=== PATIENT | female | born 1985 | race Caucasian/White ===

== ENCOUNTER 2016-12-31 15:27 | Emergency (ER) | payer BC ==
[~2016-12-31] VITALS: Ht 157.5 cm; Wt 75.0 kg
[~2016-12-31 15:27] MED LIST: ATARAX 10MG10 MG/TAB PO; ATARAX 25MG25 MG/TAB PO; BACTRIM DS 8001 TAB PO; BENADRYL25 M2 PO; CALCIUM CITRAT200 MG PO; FERROUS SU325 MG/TAB PO; FIORICET 325 MG1 TA1 PO; GLUCOPHAGE500 MG/TAB; METRONIDAZOLE500 MG PO; MIRENA52 MG IU; MOTRIN 600600 MG/TAB PO; NICODERM C14 MG/PATC TD; NO HOME MEDICATIONS; NORCO 325 MG-51 TAB PO; OXECTA5 MG PO; PEPCID 20MG TAB20 MG PO; PERCOCET 325 MG1 TA2 PO; PRENATAL; PRENATAL VITAMI1 TA5 PO; PROCARDIA XL 6060 MG PO; PROMETHAZINE12.5 M5 PO; ROXICODONE 55 MG/TAB PO; TESSALON P100 MG/CAP PO; TRANDATE 200MG200 MG PO; TRAZODONE50 MG PO; ZOFRAN 4MG T4 MG/TAB PO; [UNRECOGNIZED DRUG - REMARK]
[2016-12-31] MEDS ORDERED: NORCO 325 MG-51 TAB PO (16:43)
[2016-12-31 17:36] VITALS: BP 146/97; PULSE 100; TEMP 98.1
== END 2016-12-31 17:37 | disposition home or self-care (01) ==
LOC: COL.ER 15:27
DX: S62.306A Unspecified fracture of fifth metacarpal bone, right hand, initial encounter for closed fracture (principal); I10 Essential (primary) hypertension; F32.9 Major depressive disorder, single episode, unspecified; F12.90 Cannabis use, unspecified, uncomplicated; F17.210 Nicotine dependence, cigarettes, uncomplicated; Z90.49 Acquired absence of other specified parts of digestive tract; Z98.51 Tubal ligation status; Z98.890 Other specified postprocedural states; W18.39XA Other fall on same level, initial encounter; Y93.01 Activity, walking, marching and hiking

== ENCOUNTER 2017-03-01 12:07 | Emergency (ER) | payer BC ==
[~2017-03-01] VITALS: Ht 157.5 cm; Wt 77.3 kg
[2017-03-01 12:09] VITALS: BP 135/72; PULSE 100; TEMP 99.1
[2017-03-01] MEDS ORDERED: CATAPRES 0.1MG0.1 MG PO (12:12)
== END 2017-03-01 12:55 | disposition home or self-care (01) ==
LOC: COL.ER 12:07
DX: S90.31XA Contusion of right foot, initial encounter (principal); Z87.891 Personal history of nicotine dependence; W20.8XXA Other cause of strike by thrown, projected or falling object, initial encounter; Y92.009 Unspecified place in unspecified non-institutional (private) residence as the place of occurrence of the external cause

== ENCOUNTER 2017-04-23 11:47 | Emergency (ER) | payer BC ==
[~2017-04-23] VITALS: Ht 160 cm; Wt 88.2 kg
[~2017-04-23 11:47] MED LIST changes: +CATAPRES 0.1MG0.1 MG PO
[2017-04-23 11:53] VITALS: BP 139/73; TEMP 97.8
[2017-04-23] MEDS ORDERED: ZITHROMAX Z PA250 MG PO (12:55)
[2017-04-23 13:00] VITALS: PULSE 95
== END 2017-04-23 13:04 | disposition home or self-care (01) ==
LOC: COL.ER 11:47
DX: J40 Bronchitis, not specified as acute or chronic (principal); R07.89 Other chest pain; F17.210 Nicotine dependence, cigarettes, uncomplicated

== ENCOUNTER → 2017-09-02 | Outpatient (CLI) | payer BC ==
[~2017-09-02] MED LIST changes: +ZITHROMAX Z PA250 MG PO
== END ==
LOC: COL.RAD 09:45
DX: K76.89 Other specified diseases of liver (principal); R74.8 Abnormal levels of other serum enzymes; R10.11 Right upper quadrant pain; Z87.19 Personal history of other diseases of the digestive system; Z90.49 Acquired absence of other specified parts of digestive tract

== ENCOUNTER 2018-02-11 09:31 | Outpatient (RCR) | payer OTHER | END 2018-05-12 | disposition home or self-care (01) | LOC: WSOH | DX: S23.3XXA Sprain of ligaments of thoracic spine, initial encounter (principal); X50.0XXA Overexertion from strenuous movement or load, initial encounter; Y92.214 College as the place of occurrence of the external cause; Y99.0 Civilian activity done for income or pay; F17.210 Nicotine dependence, cigarettes, uncomplicated ==

== ENCOUNTER 2018-06-14 17:19 | Emergency (ER) | payer SELFPAY ==
[~2018-06-14] VITALS: Ht 160 cm; Wt 69.1 kg
[2018-06-14 20:19] VITALS: BP 138/97; PULSE 99; TEMP 98.5
== END 2018-06-14 20:21 | disposition home or self-care (01) ==
LOC: COL.ER 17:19
DX: S60.012A Contusion of left thumb without damage to nail, initial encounter (principal); I10 Essential (primary) hypertension; Z98.51 Tubal ligation status; Z86.19 Personal history of other infectious and parasitic diseases; W23.0XXA Caught, crushed, jammed, or pinched between moving objects, initial encounter; Y92.59 Other trade areas as the place of occurrence of the external cause

== ENCOUNTER 2018-08-31 13:37 | Outpatient (RCR) | payer OTHER | END 2018-11-29 | disposition home or self-care (01) | LOC: WSOH | DX: S60.012A Contusion of left thumb without damage to nail, initial encounter (principal); W22.8XXA Striking against or struck by other objects, initial encounter; Y93.G9 Activity, other involving cooking and grilling; Y92.214 College as the place of occurrence of the external cause; Y99.0 Civilian activity done for income or pay; F17.210 Nicotine dependence, cigarettes, uncomplicated ==

== ENCOUNTER 2019-08-20 12:44 | Emergency (ER) | payer BC ==
[~2019-08-20] VITALS: Ht 160 cm; Wt 68.2 kg
[2019-08-20 13:04] VITALS: TEMP 98
[2019-08-20 14:14] LABS: BASO % 0.3 % (0.0-2.0); EOS # 0.1 (0.0-0.7); EOS % 1.7 % (0-4.0); GRAN # 4.4 (1.4-6.5); LYMPH # 2.4 (1.2-3.4); LYMPH % 31.7 % (20.0-51.0); MEAN CELL VOLUME 85 fl (80.0-100.0); MEAN CORPUSCULAR HEMOGLOBIN 28 pg (27.0-31.0); MEAN CORPUSCULAR HGB CONC 33 g/dl (33.0-37.0); MEAN PLATELET VOLUME 9.5 fl (7.4-10.4); MONO # 0.7 (0.1-0.6); PLATELET COUNT 309 K/mm3 (130-400); RED BLOOD COUNT 5.31 M/mm3 (4.10-5.30); REDCELL DISTRIBUTION WIDTH-CV 12.9 % (11.5-14.5)
[2019-08-20 14:23] LABS: ALBUMIN 4.8 gm/dL (3.5-5.0); BILIRUBIN,TOTAL 0.8 mg/dL (0.0-1.0); CALCIUM 9.9 mg/dL (8.4-10.2); CREATININE, serum 0.84 (0.52-1.25); TOTAL PROTEIN 8.5 gm/dL (6.4-8.2)
[2019-08-20 14:26] LABS: C-REACTIVE PROTEIN 0.5 mg/dL (0.0-0.9)
[2019-08-20 15:18] LABS: COLLECTION METHOD CLEAN CATCH
[2019-08-20 15:39] LABS: MUCOUS Present /lpf; PH 6 (5-8); SQUAMOUS EPITHELIAL 0-2 /hpf; URINE APPEARANCE Hazy; URINE BACTERIA None Seen /hpf; URINE BILIRUBIN Negative (NEGATIVE); URINE BLOOD Negative (NEGATIVE); URINE COLOR Amber; URINE GLUCOSE Negative (NEGATIVE); URINE KETONE Trace (NEGATIVE); URINE LEUKOCYTE ESTERASE Trace (NEGATIVE); URINE NITRATE Negative (NEGATIVE); URINE PROTEIN(semi-quant) Negative (NEGATIVE); URINE RBC 0-2 /hpf; URINE UROBILINOGEN >=4.0 mg/dL (NEGATIVE)
[2019-08-20] MEDS ORDERED: MACROBID 1100 MG/CAP PO (16:42)
[2019-08-20 17:12] VITALS: BP 113/93; PULSE 101
== END 2019-08-20 17:14 | disposition home or self-care (01) ==
LOC: COL.ER 12:44
PROVIDERS: Physician Assistant
DX: N39.0 Urinary tract infection, site not specified (principal); Z98.51 Tubal ligation status; Z90.89 Acquired absence of other organs
CPT/HCPCS: J1885; J2405; J7030; Q9967

== ENCOUNTER 2020-09-26 11:13 | Emergency (ER) | payer BC ==
[~2020-09-26] VITALS: Ht 157.5 cm; Wt 65.5 kg
[~2020-09-26 11:13] MED LIST changes: +MACROBID 1100 MG/CAP PO
[2020-09-26 11:28] VITALS: TEMP 97.6
[2020-09-26 13:35] VITALS: BP 128/82; PULSE 78
== END 2020-09-26 13:35 | disposition home or self-care (01) ==
LOC: COL.ER 11:13
DX: S60.221A Contusion of right hand, initial encounter (principal); I10 Essential (primary) hypertension; F17.210 Nicotine dependence, cigarettes, uncomplicated; W22.09XA Striking against other stationary object, initial encounter